=== PATIENT | male | born 1985 | race Caucasian/White ===

== ENCOUNTER 2024-09-15 10:22 | Emergency (ER) | payer OTHER, SELFPAY ==
--- NOTE | ~2024-09-15 | XR_ITS ---
Clinical Indication: Chest pain PA and lateral views of the chest: Comparison: None Findings: The lungs are clear, without evidence of focal consolidation or pleural effusion. Cardiome diastinal silhouette is within normal limits. Bones and soft tissues are unremarkable. Impression: Normal chest. Reviewed, dictated and finalized at location . INE TICKET AGENT Impression: Normal chest.
--- NOTE | ~2024-09-15 | CT_ITS ---
EXAMINATION: CT abdomen pelvis w con DATE: 09/15/2024 12:12 INDICATION: Abdominal pain TECHNIQUE: Computed tomography (CT) of the abdomen and pelvis was performed with 100 mL Omnipaque-350 intravenous contrast. Automated exposure control and iterative reconstruction technique were employe d. The dose-length product was 841.63 mGy-cm. COMPARISON: None FINDINGS: Lung bases are clear. Heart size is normal. No pericardial or pleural effusion. Multiple splenic calc ific lesions consistent with old granulomatous disease. Small amount of focal hepatic steatosis along the ligamentum teres. Gallbladder, pancreas, bilateral adrenal glands and right kidney are normal. 1 .4 cm left renal cyst. Bowels including the appendix are normal. Bladder is normal. No free intraperi toneal gas or fluid. No pathologically enlarged abdominal or pelvic lymphadenopathy. Mild lumbar and mild to moderate lower thoracic spondylosis. IMPRESSION: 1. No acute intra-abdominal/pelvic process. Reviewed, dictated and finalized at location B. GE CLIPPER
--- NOTE | 2024-09-15 10:27 | ECG_ITS ---
Test Date: 2024-09-15 10:31:37 Measurements Intervals [place] Rate: 79 P: 11 UT: 142 QRS: -30 QRSD: 94 T: 22 QT: 357 QTc: 410 Interpretive Statements SINUS RHYTHM WITH SINUS ARRHYTHMIA BORDERLINE LEFT AXIS DEVIATION [QRS AXIS < -20] No previous ECG available for comparison Electronically Signed On 09-15-2024 13:41:37 CYTOGENETIC TECHNOLOGIST by Farhana Gillis M.D.
[2024-09-15 10:38] VITALS: BP 145/93; PULSE 79; RESP 16; TEMP 36.4; O2SAT 98
[2024-09-15 11:09] LABS: Basophils Percent Auto 0.5 % (0.2-1.2); Eosinophils Absolute Auto 0.1 K/mm3 (0-0.3); Eosinophils Percent Auto 0.7 % (0-4.4); Hematocrit 40.7 % (42.0-52.0); Hemoglobin 14.4 g/dL (14.0-18.0); Immature Granulocyte Absolute 0.03 K/mm3 (0.00-0.031); Immature Granulocyte Percent A 0.4 % (0-0.5); Lymphocytes Absolute Auto 1.32 K/mm3 (0.9-3.2); Lymphocytes Percent Auto 16.5 % (18.3-44.2); Mean Corpuscular HGB Conc 35.4 g/dl (32-36); Mean Corpuscular Hemoglobin 29.1 pg (26-34); Mean Corpuscular Volume 82.2 fl (80-100); Mean Platelet Volume 8.9 fl (7.4-10.4); Monocytes Absolute Auto 0.6 K/mm3 (0.1-0.6); Neutrophils Percent Auto 74.9 % (45.5-73.1); Platelet Count Result 242 k/mm3 (150-375); Red Blood Count 4.95 M/mm3 (4.6-6.20); Red Cell Distribution Width 11.9 % (11.5-14.5)
[2024-09-15 11:20] LABS: Alanine Aminotransferase 30 U/L (6-50); Albumin Level 4.8 g/dL (3.5-5.1); Alkaline Phosphatase 80 U/L (38-126); Anion Gap 11 mmol/L (4-12); Aspartate Amino Transferase 28 U/L (17-59); Bilirubin,Total 1.9 mg/dL (0.2-1.3); Blood Urea Nitrogen 14 mg/dL (9-20); Calcium 9.6 mg/dL (8.4-10.2); Carbon Dioxide 26 mmol/L (22-30); Chloride 102 mmol/L (98-107); Estimated CRCL calculation 97 ml/min; Estimated Glomerular Filt Rate > 60; Glucose 108 mg/dL (65-110); Lipase 39 U/L (23-300); Potassium 3.9 mmol/L (3.4-5.0); Sodium 139 mmol/L (137-145)
--- OUTSIDE RECORDS SUMMARY | 2024-09-15 11:21 | XMS_ITS | Clinical Summary ---
Author Organization [facility] Virtual Care Address [address] [place] [phone] Phone Care Team Providers Care Social Service Worker Name Role Phone Unknown, Notinfile Primary Care Provider Unavail able Allergies Active Allergy Reactions Criticality Noted Date Comments Penicillin G Hives Medium 08/07/2024 Medications benzonatate (TESSALON) 200 mg capsuleIndicati ons:Pneumonia of right lower lobe due to infectious organism Take 1 capsule (200 mg total) by mouth 3 (three) times a day as needed for cough keep tessalon out of reach of children, especially children under the age of 10, due to possible serious risk such as if ingested by children under the age of 10. 30 capsule Active Active Problems No known active problems Encounters Date Type Department Care Team Description 08/07/2024 7:39 PM DYE RANGE OPERATOR - 08/07/2024 11:59 PM DYE RANGE OPERATOR Hospital Encounter [address] [id number] Pneumonia of right lower lobe due to infectious organism Discharge Disposition: Discharge to home or self care 08/07/2024 11:35 AM DYE RANGE OPERATOR Ancillary Procedure [facility] Imaging at [address] [phone] Acute cough 08/07/2024 11:15 AM DYE RANGE OPERATOR Office Visit [facility] Convenient Care at [address] [phone] Linda Sanders NP Pneumonia of right lower lobe due to infectious organism (Primary Dx); Elevated blood pressure reading from Last 3 Months Social History Tobacco Use Types Packs/Day Years Used Date Smoking Tobacco: Never Assessed Sex and Gender Information Value Date Recorded Sex Assigned at Not on file Legal Sex Male 10:02 PM DYE RANGE OPERATOR Gender Identity Not on file Sexual Orientation Not on file Obstetrics History Last Filed Vital Signs Vital Sign Reading Time Taken Comments Blood Pressure 146/98 08/07/2024 11:30 AM DYE RANGE OPERATOR Pulse 87 08/07/2024 11:30 AM DYE RANGE OPERATOR Temperature 36.8 ??C (98.2 ??F) 08/07/2024 11:[address] Respiratory Rate 20 08/07/2024 11:08 AM DYE RANGE OPERATOR Oxygen Saturation 99% 08/07/2024 11:30 AM DYE RANGE OPERATOR Inhaled Oxygen Concentration - - Weight 105.2 kg (232 lb) 08/07/2024 11:08 AM DYE RANGE OPERATOR Height - - Body Mass Index - - Plan of Treatment Health Maintenance Due Date Last Done Comments Depression Screening 1983 Hepatitis C Screening 1983 Varicella Vaccines (1 of 2 - 13+ 2-dose series) 1996 Hepatitis B Screening 2001 Regular Well Visit/Exam 18-64 2001 Covid-19 Vaccine ( season) 2024 08/18/2021, 11/18/2020, 10/22/2020 DTaP/Tdap/Td Vaccine (2 - Td or Tdap) 07/29/2025 07/29/2015 Influenza Vaccine Completed 06/12/2024, , 05/25/2022, Additional history exists HPV Vaccines Aged Out No longer eligi ble based on patient's age to complete this topic Pneumococcal vaccine <65 Aged Out No longer eligible based on patient's age to complete this topic Procedures Procedure Name Priority Date/Time Associated Diagnosis Comments INFLUENZA A/B, RSV, AND COVID-19 PCR Routine 08/07/2024 3:13 PM DYE RANGE OPERATOR Pneumonia of right lower lobe due to infectious organism XR CHEST PA LATERAL 2 VIEWS Schedule JEFFERSON, Read JEFFERSON (Appt Today, Awaiting Results) 08/07/2024 11:38 AM DYE RANGE OPERATOR Acute cough from Last 3 Months Results * Influenza A/B, RSV, and COVID-19 PCR Nasopharyngeal (08/07/2024 3:13 PM DYE RANGE OPERATOR) COVID-19 RNA Negative Negative Comment:Collection date/time has been modified to: 15:13:00. Previous collection date/time: 16:00:00. Influenza A RNA Negative Negative [facility] Comment:Collection date/time has been modified to: 15:13:00. Previous collection date/time: 16:00:00. Influenza B RNA Negative Negative [facility] Comment:Collection date/time has been modified to: 15:13:00. Previous collection date/time: 16:00:00. RSV RNA Negative Negative [facility] Comment: Collection date/time has been modified to: 15:13:00. ??Previous collection date/time: 16:00:00. Interpretive data: Testing performed by [facility]. This test is performed using the [employer] Xpress CoV-2/Flu/RSV plus assay. This is a multiplex, real-time reverse transcriptase PCR assay intended for the qualitative detection of nucleic acid from SARS-CoV-2, influenza A, influenza B, and respiratory syncytial virus. This assay has been cleared by the [place] Food and Drug administration. The performance characteristics have been verified by the [facility]. ??Results must be considered in the clinical context, and a negative result does not rule out infection. Interpretive Data last revised 2023 Nasopharyngeal 08/07/2024 3: 13 PM DYE RANGE OPERATOR 08/07/2024 8:21 PM DYE RANGE OPERATOR Narrative LENNY - 08/08/2024 3:36 PM DYE RANGE OPERATOR Is the Patient experiencing symptoms consistent with COVID?->Yes us Linda Sanders NP LAB MICROBIOLOGY - GENERAL ERAN HERNANDEZ Edited Result - Final LENNY [id number] [address] Department [place] [address] CH * XR Chest PA Lateral 2 Views (08/07/2024 11:38 AM DYE RANGE OPERATOR) Anatomical Region Laterality Modality Body, Chest N/A Digital Radiogra phy 08/07/2024 12:2 2 PM DYE RANGE OPERATOR Narrative 08/07/2024 12:24 PM DYE RANGE OPERATOR EXAM DESCRIPTION: XR CHEST PA LATERAL 2 VIEWS REASON FOR STUDY: cough ?? Pt complains of cough for about a week. No surgery to heart, lungs, or chest. Non-smoker. ? TECHNIQUE: 2 ??radiographic view(s) of the chest. COMPARISON: No prior studies are available for comparison at time of this dictation. FINDINGS: LUNGS: ??Focal atelectasis and airspace opacities in the right lower lobe is concerning for pneumonia. ??No pleural effusion or pneumothorax. ?? HEART/MEDIASTINUM: ??Cardiac silhouette normal in size. Mediastinal and hilar contours appear normal. LINES/TUBES: ??None. BONES: ??No acute osseous abnormality. IMPRESSION: Focal atelectasis and airspace opacities in the right lower lobe are concerning for pneumonia. ??Consider follow-up radiograph in 6 weeks to ensure resolution. THIS IS AN ELECTRONICALLY VERIFIED FINAL REPORT 08/07/2024 12:24 PM - Electronically signed by ??Josh Root M.D. MM D: ??08/07/2024 12:24 PM T: Report ID: [id number] Reading Location: ??[id number] Procedure Note Josh Root MD - 08/07/2024 EXAM DESCRIPTION: XR CHEST PA LATERAL 2 VIEWS REASON FOR STUDY: cough Pt complains of cough for about a week. No surgery to heart, lungs, orchest. Non-smoker. TECHNIQUE: 2 radiographic view(s) of the chest. COMPARISON: No prior studies are available for comparison at time of this dictation. FINDINGS: LUNGS: Focal atelectasis and airspace opacities in the rightlower lobe is concerning for pneumonia. No pleural effusion or pneumothorax. HEART/MEDIASTINUM: Cardiac silhouette normal in size. Mediastinal andhilar contours appear normal. LINES/TUBES: None. BONES: No acute osseous abnormality. IMPRESSION: Focal atelectasis and airspace opacities in the right lowerlobe are concerning for pneumonia. Consider follow-up radiograph in 6 weeks to ensure resolution. THIS IS AN ELECTRONICALLY VERIFIED FINAL REPORT 08/07/2024 12:24 PM - Electronically signed by Josh Root M.D. MM T: Report ID: [id number] Reading Location: [id number] Linda Sanders DINING HOST IMG XR PROCEDURES Final Result from Last 3 Months Insurance [employer] Care Teams Social Service Worker Relationship Specialty Start Date End Date Unknown, Notinfile PCP - General 08/07/24
--- OUTSIDE RECORDS SUMMARY | 2024-09-15 11:21 | XMS_ITS | Clinical Summary ---
Author Organization [facility] Address [address] [place] [phone] Care Team Providers Care Daycare Teacher Name Role Phone Unavailable Primary Care Provider Unavailabl e Social History Tobacco Use Types Packs/Day Years Used Date Smoking Tobacco: Never Assessed Sex and Gender Information Value Date Recorded Sex Assigned at Not on file Legal Sex Male 9:58 AM HOSE MENDER Gender Identity Not on file Sexual Orientation Not on file Plan of Treatment Health Maintenance Due Date Last Done Comments Hepatitis C Virus (HCV) Screening 1983 Hepatitis B Immunization (1 of 3 - 19+ 3-dose series) 2002 Influenza Immunization (#1) 04/20/202403/2020, 05/15/2019, 05/23/2018, Additional history exists SARS-COV-2 Immunization ( season) 2024 Respiratory Syncytial Virus (RSV) Immunization (Adult) (1 - 1-dose 75+ series) 2058 DTaP/Tdap/Td Immunization Discontinued 07/29/2015 TdaP Immunization Completed 07/29/2015 Meningococcal Immunization (ACWY) Aged Out No longer eligible based on patient's age to complete this topic Pneumococcal Immunization Combined Aged Out No longer eligible based on patient's age to complete this topic Rotavirus Immunization Aged Out No lo nger eligible based on patient's age to complete this topic Insurance [employer] on file
--- OUTSIDE RECORDS SUMMARY | 2024-09-15 11:21 | XMS_ITS | Referral Summary ---
Author Organization [facility] Virtual Care Address [address] [place] [phone] Phone Care Team Providers Care Die Drawing Checker Name Role Phone Unknown, Notinfile Primary Care Provider Unavail able Encounters Date Type Department Care Team Description 08/07/2024 7:39 PM DECORATING INSTRUCTOR - 08/07/2024 11:59 PM DECORATING INSTRUCTOR Hospital Encounter [address] [phone] Pneumonia of right lower lobe due to infectious organism Discharge Disposition: Discharge to home or self care 08/07/2024 11:35 AM DECORATING INSTRUCTOR Ancillary Procedure [facility] Imaging at [address] [phone] Acute cough 08/07/2024 11:15 AM DECORATING INSTRUCTOR Office Visit [facility] Convenient Care at [address] [phone] Linda Sanders NP Pneumonia of right lower lobe due to infectious organism (Primary Dx); Elevated blood pressure reading from Last 3 Months Allergies Active Allergy Reactions Criticality Noted Date [...] Active Active Problems No known active problems Social History Tobacco Use Types Packs/Day Years Used Date Smoking Tobacco: Never Assessed Sex and Gender Information Value Date Recorded Sex Assigned at Not on file Legal Sex Male 10:02 PM DECORATING INSTRUCTOR Gender Identity Not on file Sexual Orientation Not on file Last Filed Vital Signs Vital Sign Reading Time Taken Comments Blood Pressure 146/98 08/07/2024 11:30 AM DECORATING INSTRUCTOR Pulse 87 08/07/2024 11:30 AM DECORATING INSTRUCTOR Temperature 36.8 ??C (98.2 ??F) 08/07/2024 11:[address] Respiratory Rate 20 08/07/2024 11:08 AM DECORATING INSTRUCTOR Oxygen Saturation 99% 08/07/2024 11:30 AM DECORATING INSTRUCTOR Inhaled Oxygen Concentration - - Weight 105.2 kg (232 lb) 08/07/2024 11:08 AM DECORATING INSTRUCTOR Height - - Body Mass Index - - Plan of Treatment Not on file Procedures Procedure Name Priority Date/Time Associated Diagnosis Comments INFLUENZA A/B, RSV, AND COVID-19 PCR Routine 08/07/2024 3:13 PM DECORATING INSTRUCTOR Pneumonia of right lower lobe due to infectious organism XR CHEST PA LATERAL 2 VIEWS Schedule JEFFERSON, Read JEFFERSON (Appt Today, Awaiting Results) 08/07/2024 11:38 AM DECORATING INSTRUCTOR Acute cough from Last 3 Months Results * Influenza A/B, RSV, and COVID-19 PCR Nasopharyngeal (08/07/2024 3:13 PM DECORATING INSTRUCTOR) COVID-19 RNA Negative Negative Comment:Collection date/time has been modified to: 15:13:00. Previous collection date/time: 16:00:00. Influenza A RNA Negative Negative LENNY Comment:Collection date/time has been modified to: 15:13:00. Previous collection date/time: 16:00:00. Influenza B RNA Negative Negative LENNY Comment:Collection date/time has been modified to: 15:13:00. Previous collection date/time: 16:00:00. RSV RNA Negative Negative LENNY Comment: Collection date/time has been modified to: 15:13:00. ??Previous collection date/time: 16:00:00. Interpretive data: Testing performed by [facility]. This test is performed using the [employer] Xpert Xpress CoV-2/Flu/RSV plus assay. This is a multiplex, real-time reverse transcriptase PCR assay intended for the qualitative detection of nucleic acid from SARS-CoV-2, influenza A, influenza B, and respiratory syncytial virus. This assay has been cleared by the [place] Food and Drug administration. The performance characteristics have been verified by the [facility]. ??Results must be considered in the clinical context, and a negative result does not rule out infection. Interpretive Data last revised 2023 Nasopharyngeal 08/07/2024 3: 13 PM DECORATING INSTRUCTOR 08/07/2024 8:21 PM DECORATING INSTRUCTOR Narrative LENNY - 08/08/2024 3:36 PM DECORATING INSTRUCTOR Is the Patient experiencing symptoms consistent with COVID?->Yes Linda Sanders NP LAB MICROBIOLOGY - GENERAL ERAN HERNANDEZ Edited Result - Final LENNY [id number] [place] [address] CH * XR Chest PA Lateral 2 Views (08/07/2024 11:38 AM DECORATING INSTRUCTOR) Anatomical Region Laterality Modality Body, Chest N/A Digital Radiogra phy 08/07/2024 12:2 2 PM DECORATING INSTRUCTOR Narrative 08/07/2024 12:24 PM DECORATING INSTRUCTOR EXAM DESCRIPTION: XR CHEST PA LATERAL 2 [...] PM - Electronically signed by ??Josh Root M.D., MM D: ??08/07/2024 12:24 PM T: Report ID: [id number] Reading Location: ??[id number] Procedure Note Josh Root MD - 08/07/2024 [...] PM - Electronically signed by Josh Root M.D., MM T: Report ID: [id number] Reading Location: [id number] Linda Sanders NP IMG XR PROCEDURES Final Result from Last 3 Months Insurance [employer] Care Teams Die Drawing Checker Relationship Specialty Start Date End Date Unknown, Notinfile PCP - General 08/07/24
[2024-09-15 11:31] LABS: Troponin I < 0.012 ng/mL (0.000-0.034)
--- NOTE | 2024-09-15 11:50 | ED_ITS ---
HPI - Chest Pain General Chief Complaint: Chest Pain <Althea Kidd APRN - Last Filed: 09/15/24 11:52> Stated Complaint: chest pain on and off for a few days <Althea Kidd APRN - Last Filed: 09/15/24 11:52> Time Seen by Provider: 09/15/24 11:40 <Althea Kidd APRN - Last Filed: 09/15/24 11:52> Focused HPI: Patient is a 39-year-old male who presents to the ER with complaints of chest pain intermittently for the past 3 days. Reports the episodes last for about 30 seconds. Patient reports it does not worsen with exertion and only happens when he is awake. He denies any medical history related to this ER visit. Patient denies shortness of breath, recent fevers, back pain, urinary symptoms. GENERAL: Well-appearing, well-nourished, and in no acute distress. HEAD: Normocephalic, atraumatic. CHEST: Clear to auscultation. ?No respiratory distress. HEART: Regular rate and rhythm.? NEURO: ?Alert and oriented x3. Patient screened in triage and initial orders placed.? ?Additional care and disposition to be based upon?diagnostic testing and treatment. <Althea Kidd APRN - Last Filed: 09/15/24 11:52> History of Present Illness HPI narrative: Agree with HPI <Hal Forrester MD - Last Filed: 09/15/24 18:57> Related Data Allergies/Adverse Reactions: Allergies Allergy/AdvReac Type Severity Reaction Status Date / Time amoxicillin Allergy Unknown Unknown Verified 09/15/24 10:24 sulfamethizole Allergy Unknown Unknown Verified 09/15/24 10:24 sulfamethoxazole Allergy Unknown RASH Verified 09/15/24 10:24 trimethoprim Allergy Unknown Unknown Verified 09/15/24 10:24 <Althea Kidd APRN - Last Filed: 09/15/24 11:52> Review of Systems 2 Review of Systems: All systems reviewed & are unremarkable except as noted in HPI and below <Hal Forrester MD - Last Filed: 09/15/24 18:57> Constitutional: Constitutional: Reports no additional constitutional complaints <Hal Forrester MD - Last Filed: 09/15/24 18:57> Cardiovascular: Cardiovascular: Reports no additional cardiovascular complaints <Hal Forrester MD - Last Filed: 09/15/24 18:57> Respiratory: Respiratory: Reports no additional respiratory complaints < Hal Forrester MD - Last Filed: 09/15/24 18:57> Integumentary/Breasts: Skin/Breast: Reports system reviewed and no additional complaints, except as docu <Hal Forrester MD - Last Filed: 09/15/24 18:57> [facility] Past Medical History Medical History: Medical History BMI 29.0-29.9,adult BMI 31.0-31.9,adult <Althea Kidd APRN - Last Filed: 09/15/24 11:52> Social History Social History: Social History Smoking status: Never smoker Second hand tobacco smoke exposure: No Alcohol intake: never Substance use: never Substance use type: does not use Lack of Transportation: No Lack of Food: Never True Current Housing: I Have Housing Concerned About Future Housing: No Difficulty Paying Gas/Electric Bills: No Difficulty Paying for Meds: No Currently Unemployed: No Education: Bachelor's Degree Difficulty w/ Childcare or Family Care: No Living arrangements: with family Occupation/Education: occupation Gender identity (if verbalized by the patient): Male <Althea Kidd, HOSPITAL CLEANER - Last Filed: 09/15/24 11:52> Exam 2 Narrative: GENERAL: Well-appearing, well-nourished, and in no acute distress. HEAD: Normocephalic, atraumatic. ENT: Mucous membranes moist. CHEST: Clear to auscultation. No respiratory distress. HEART: Regular rate and rhythm. Normal peripheral pulses. ABDOMEN: Soft, nontender, nondistended. EXTREMITIES: Normal range of motion. No edema. SKIN: Warm, dry, no rash. NEURO: Alert and oriented x3. PSYCH: Normal mood and affect. <Hal Forrester MD - Last Filed: 09/15/24 18:57> Course Course Emergency Course: Unremarkable exam. EKG and labs reviewed. RSV positive. Likely has some pleurisy causing his discomfort. <Hal Forrester MD - Last Filed: 09/15/24 18:57> Vital Signs Vital signs: Vital Signs Temperature 97.6 F 09/15/24 10:38 Pulse Rate 79 09/15/24 10:38 Respiratory Rate 16 09/15/24 10:38 Blood Pressure 145/93 H 09/15/24 10:38 Pulse Oximetry 98 09/15/24 10:38 Oxygen Delivery Room Air 09/15/24 10:38 Temperature 97.6 F 09/15/24 10:38 Pulse Rate 83 09/15/24 16:29 Respiratory Rate 20 09/15/24 16:29 Blood Pressure 136/86 09/15/24 16:29 Pulse Oximetry 97 09/15/24 16:29 Oxygen Delivery Room Air 09/15/24 14:02 <Althea Kidd, HOSPITAL CLEANER - Last Filed: 09/15/24 11:52> Vital Signs Temperature 97.6 F 09/15/24 10:38 Pulse Rate 79 09/15/24 10:38 Respiratory Rate 16 09/15/24 10:38 Blood Pressure 145/93 H 09/15/24 10:38 Pulse Oximetry 98 09/15/24 10:38 Oxygen Delivery Room Air 09/15/24 10:38 Temperature 97.6 F 09/15/24 10:38 Pulse Rate 83 09/15/24 16:29 Respiratory Rate 20 09/15/24 16:29 Blood Pressure 136/86 09/15/24 16:29 Pulse Oximetry 97 09/15/24 16:29 Oxygen Delivery Room Air 09/15/24 14:02 <Hal Forrester MD - Last Filed: 09/15/24 18:57> MDM - Chest Pain Lab Data Result diagrams: 09/15/24 11:02 09/15/24 11:02 <Althea Kidd, ZORAN - Last Filed: 09/15/24 11:52> Labs: Lab Results 09/15/24 09/15/24 Range/Units 11:02 12:23 WBC 8.0 (4.5-10.0) K/mm3 RBC 4.95 (4.6-6.20) M/mm3 Hgb 14.4 (14.0-18.0) g/dL Hct 40.7 L (42.0-52.0) % MCV 82.2 (80-100) fl MCH 29.1 (26-34) pg MCHC 35.4 (32-36) g/dl RDW 11.9 (11.5-14.5) % Plt Count 242 (150-375) k/mm3 MPV 8.9 (7.4-10.4) fl Immature Gran % (Auto) 0.4 (0-0.5) % Neut % (Auto) 74.9 H (45.5-73.1) % Lymph % (Auto) 16.5 L (18.3-44.2) % Simpson % (Auto) 7.0 (2.6-8.5) % Eos % (Auto) 0.7 (0-4.4) % Baso % (Auto) 0.5 (0.2-1.2) % Lymph # (Auto) 1.32 (0.9-3.2) K/mm3 Simpson # (Auto) 0.6 (0.1-0.6) K/mm3 Eos # (Auto) 0.1 (0-0.3) K/mm3 Baso # (Auto) 0.0 (0.0-0.1) K/mm3 Abs Immat Gran (auto) 0.03 (0.00-0.031) K/mm3 Absolute Neuts (auto) 6.0 (1.3-6.7) K/mm3 Absolute Nucleated RBC 0.000 (0.0-0.012) K/mm3 Nucleated RBC % 0.0 (0.0-0.2) % PT 14.0 (11.1-14.7) Seconds INR 1.0 APTT 26.3 (22.3-36.8) Seconds Sodium 139 (137-145) mmol/L Potassium 3.9 (3.4-5.0) mmol/L Chloride 102 (98-107) mmol/L Carbon Dioxide 26 (22-30) mmol/L Anion Gap 11 (4-12) mmol/L BUN 14 (9-20) mg/dL Creatinine 1.07 (0.7-1.3) mg/dL Estim Creat Clear Calc 97 ml/min Estimated GFR > 60 (59 - ) Glucose 108 (65-110) mg/dL Calcium 9.6 (8.4-10.2) mg/dL Total Bilirubin 1.9 H (0.2-1.3) mg/dL AST 28 (17-59) U/L ALT 30 (6-50) U/L Alkaline Phosphatase 80 (38-126) U/L Troponin I < 0.012 (0.000-0.034) ng/mL Total Protein 8.0 (6.3-8.2) g/dL Albumin 4.8 (3.5-5.1) g/dL Lipase 39 (23-300) U/L Influenza A (RT-PCR) Negative (Negative) Influenza B (RT-PCR) Negative (Negative) RSV (RT-PCR) Positive A (Negative) SARS-CoV-2 RNA (RT-PCR) Negative (Negative) <Althea Kidd, HOSPITAL CLEANER - Last Filed: 09/15/24 11:52> Lab Results 09/15/24 09/15/24 Range/Units 11:02 12:23 WBC 8.0 (4.5-10.0) K/mm3 RBC 4.95 (4.6-6.20) M/mm3 Hgb 14.4 (14.0-18.0) g/dL Hct 40.7 L (42.0-52.0) % MCV 82.2 (80-100) fl MCH 29.1 (26-34) pg MCHC 35.4 (32-36) g/dl RDW 11.9 (11.5-14.5) % Plt Count 242 (150-375) k/mm3 MPV 8.9 (7.4-10.4) fl Immature Gran % (Auto) 0.4 (0-0.5) % Neut % (Auto) 74.9 H (45.5-73.1) % Lymph % (Auto) 16.5 L (18.3-44.2) % Simpson % (Auto) 7.0 (2.6-8.5) % Eos % (Auto) 0.7 (0-4.4) % Baso % (Auto) 0.5 (0.2-1.2) % Lymph # (Auto) 1.32 (0.9-3.2) K/mm3 Simpson # (Auto) 0.6 (0.1-0.6) K/mm3 Eos # (Auto) 0.1 (0-0.3) K/mm3 Baso # (Auto) 0.0 (0.0-0.1) K/mm3 Abs Immat Gran (auto) 0.03 (0.00-0.031) K/mm3 Absolute Neuts (auto) 6.0 (1.3-6.7) K/mm3 Absolute Nucleated RBC 0.000 (0.0-0.012) K/mm3 Nucleated RBC % 0.0 (0.0-0.2) % PT 14.0 (11.1-14.7) Seconds INR 1.0 APTT 26.3 (22.3-36.8) Seconds Sodium 139 (137-145) mmol/L Potassium 3.9 (3.4-5.0) mmol/L Chloride 102 (98-107) mmol/L Carbon Dioxide 26 (22-30) mmol/L Anion Gap 11 (4-12) mmol/L BUN 14 (9-20) mg/dL Creatinine 1.07 (0.7-1.3) mg/dL Estim Creat Clear Calc 97 ml/min Estimated GFR > 60 (59 - ) Glucose 108 (65-110) mg/dL Calcium 9.6 (8.4-10.2) mg/dL Total Bilirubin 1.9 H (0.2-1.3) mg/dL AST 28 (17-59) U/L ALT 30 (6-50) U/L Alkaline Phosphatase 80 (38-126) U/L Troponin I < 0.012 (0.000-0.034) ng/mL Total Protein 8.0 (6.3-8.2) g/dL Albumin 4.8 (3.5-5.1) g/dL Lipase 39 (23-300) U/L Influenza A (RT-PCR) Negative (Negative) Influenza B (RT-PCR) Negative (Negative) RSV (RT-PCR) Positive A (Negative) SARS-CoV-2 RNA (RT-PCR) Negative (Negative) <Hal Forrester MD - Last Filed: 09/15/24 18:57> Imaging Data Radiologist's impression: ITS Impressions Chest X-Ray 09/15/24 12:09 Impression: Normal chest. Abdomen/Pelvis CT 09/15/24 12:13 IMPRESSION: 1. No acute intra-abdominal/pelvic process. <Hal Forrester MD - Last Filed: 09/15/24 18:57> Discharge Plan Discharge Clinical Impression: Pleurisy, RSV infection <Althea Kidd APRN - Last Filed: 09/15/24 11:52> Patient Disposition: Home, Self-Care <Althea Kidd APRN - Last Filed: 09/15/24 11:52> Condition: Stable <Althea Kidd APRN - Last Filed: 09/15/24 11:52> Instructions: Pleurisy (ED) <Althea Kidd APRN - Last Filed: 09/15/24 11:52> Additional Instructions: Please return to the emergency department if you develop severe and persistent chest pain, difficulty breathing, dizziness, leg swelling or if you are coughing up blood as these can be signs of a medical emergency. Please call your doctor for a follow up appointment to determine the need for further testing. <Althea Kidd APRN - Last Filed: 09/15/24 11:52> Patient Language: Luxembourgish <Althea Kidd APRN - Last Filed: 09/15/24 11:52> Prescriptions: New naproxen 375 mg tablet 375 mg PO BID Qty: 14 0RF <Althea Kidd APRN - Last Filed: 09/15/24 11:52> Follow-up/Referrals: Balta Phoenix MD [Primary Care Provider] - 1 Week <Althea Kidd APRN - Last Filed: 09/15/24 11:52>
[2024-09-15 12:04] LABS: Partial Thromboplastin Time 26.3 Seconds (22.3-36.8)
[2024-09-15] MEDS: ASPIRIN 81 MG CHEWABLE TABLET 324 MG PO (12:24)
[2024-09-15] MEDS: BELLADONNA ALK/PHENOB ELIX 10 ML, MAG HYDROX/ALUMINUM HYD/SIMETH 30 ML, LIDOCAINE 2% VI... PO (12:24)
[2024-09-15 13:08] LABS: Influenza A QL RT-PCR Negative (Negative); Influenza B QL RT-PCR Negative (Negative); RSV RNA, RT-PCR Positive (Negative); SARS-CoV-2 RNA PCR Negative (Negative)
[2024-09-15 14:02] VITALS: PULSE 69; O2SAT 97
[2024-09-15 15:15] VITALS: BP 128/89; PULSE 79; RESP 18; O2SAT 97
--- OUTSIDE RECORDS SUMMARY | 2024-09-15 15:53 | XMS_ITS | Referral Summary ---
Author Organization [facility] Virtual Care Address [address] [place] [phone] Phone Care Team Providers Care Gerontological Nurse Practitioner Name Role Phone Unknown, Notinfile Primary Care Provider Unavail able Encounters Date Type Department Care Team Description 08/07/2024 7:39 PM PAINTER MAINTENANCE - 08/07/2024 11:59 PM PAINTER MAINTENANCE Hospital Encounter [address] [phone] Pneumonia of right lower lobe due to infectious organism Discharge Disposition: Discharge to home or self care 08/07/2024 11:35 AM PAINTER MAINTENANCE Ancillary Procedure [facility] Imaging at [address] [phone] Acute cough 08/07/2024 11:15 AM PAINTER MAINTENANCE Office Visit [facility] Con[facility]ient Care at [address] [phone] Linda Sanders NP Pneumonia of right lower [...] on file Legal Sex Male 10:02 PM PAINTER MAINTENANCE Gender Identity Not on file Sexual Orientation Not on file Last Filed Vital Signs Vital Sign Reading Time Taken Comments Blood Pressure 146/98 08/07/2024 11:30 AM PAINTER MAINTENANCE Pulse 87 08/07/2024 11:30 AM PAINTER MAINTENANCE Temperature 36.8 ??C (98.2 ??F) 08/07/2024 11:[address] Respiratory Rate 20 08/07/2024 11:08 AM PAINTER MAINTENANCE Oxygen Saturation 99% 08/07/2024 11:30 AM PAINTER MAINTENANCE Inhaled Oxygen Concentration - - Weight 105.2 kg (232 lb) 08/07/2024 11:08 AM PAINTER MAINTENANCE Height - - Body Mass Index - - Plan of Treatment Not on file Procedures Procedure Name Priority Date/Time Associated Diagnosis Comments INFLUENZA A/B, RSV, AND COVID-19 PCR Routine 08/07/2024 3:13 PM PAINTER MAINTENANCE Pneumonia of right lower lobe due to infectious organism XR CHEST PA LATERAL 2 VIEWS Schedule JEFFERSON, Read JEFFERSON (Appt Today, Awaiting Results) 08/07/2024 11:38 AM PAINTER MAINTENANCE Acute cough from Last 3 Months Results * Influenza A/B, RSV, and COVID-19 PCR Nasopharyngeal (08/07/2024 3:13 PM PAINTER MAINTENANCE) COVID-19 RNA Negative Negative Comment:Collection date/time has [...] date/time: 16:00:00. Interpretive data: Testing performed by [facility]. This test is performed using the i-marker Xpert Xpress CoV-2/Flu/RSV plus assay. This is a multiplex, real-time reverse transcriptase PCR assay intended for the qualitative detection of nucleic acid from SARS-CoV-2, influenza A, influenza B, and respiratory syncytial virus. This assay has been cleared by the [place] Food and Drug administration. The performance characteristics have been verified by the [facility]. ??Results must be considered in the clinical context, and a negative result does not rule out infection. Interpretive Data last revised 2023 Nasopharyngeal 08/07/2024 3: 13 PM PAINTER MAINTENANCE 08/07/2024 8:21 PM PAINTER MAINTENANCE Narrative LENNY - 08/08/2024 3:36 PM PAINTER MAINTENANCE Is the Patient experiencing symptoms consistent with COVID?->Yes Linda Sanders NP LAB MICROBIOLOGY - GENERAL ERAN HERNANDEZ Edited Result - Final LENNY [id number] [address] Department [place] [address] CH * XR Chest PA Lateral 2 Views (08/07/2024 11:38 AM PAINTER MAINTENANCE) Anatomical Region Laterality Modality Body, Chest N/A Digital Radiogra phy 08/07/2024 12:2 2 PM PAINTER MAINTENANCE Narrative 08/07/2024 12:24 PM PAINTER MAINTENANCE EXAM DESCRIPTION: XR CHEST PA LATERAL 2 [...] D: ??08/07/2024 12:24 PM T: Report ID: [id number] Reading Location: ??[id number] Procedure Note Josh Root MD - 08/07/2024 [...] Josh Root M.D., MM T: Report ID: [id number] Reading Location: [id number] Linda Sanders NP IMG XR PROCEDURES Final Result from Last 3 Months Insurance [employer] Care Teams Gerontological Nurse Practitioner Relationship Specialty Start Date End Date Unknown, Notinfile PCP - General 08/07/24
--- OUTSIDE RECORDS SUMMARY | 2024-09-15 15:53 | XMS_ITS | Clinical Summary ---
Author Organization [facility] Virtual Care Address [address] [place] [phone] Phone Care Team Providers Care Construction Consultant Name Role Phone Unknown, Notinfile Primary Care [...] Department Care Team Description 08/07/2024 7:39 PM DEFENSE ANALYST - 08/07/2024 11:59 PM DEFENSE ANALYST Hospital Encounter [address] [phone] Pneumonia of right lower lobe due to infectious organism Discharge Disposition: Discharge to home or self care 08/07/2024 11:35 AM DEFENSE ANALYST Ancillary Procedure [facility] Imaging at [address] [phone] Acute cough 08/07/2024 11:15 AM DEFENSE ANALYST Office Visit [facility] Convenient Care at [address] [phone] Linda Sanders NP Pneumonia of right lower lobe due to infectious organism (Primary Dx); Elevated blood pressure reading from Last 3 Months Social History Tobacco Use Types Packs/Day Years Used Date Smoking Tobacco: Never Assessed Sex and Gender Information Value Date Recorded Sex Assigned at Not on file Legal Sex Male 10:02 PM DEFENSE ANALYST Gender Identity Not on file Sexual Orientation Not on file Obstetrics History Last Filed Vital Signs Vital Sign Reading Time Taken Comments Blood Pressure 146/98 08/07/2024 11:30 AM DEFENSE ANALYST Pulse 87 08/07/2024 11:30 AM DEFENSE ANALYST Temperature 36.8 ??C (98.2 ??F) 08/07/2024 11:[address] Respiratory Rate 20 08/07/2024 11:08 AM DEFENSE ANALYST Oxygen Saturation 99% 08/07/2024 11:30 AM DEFENSE ANALYST Inhaled Oxygen Concentration - - Weight 105.2 kg (232 lb) 08/07/2024 11:08 AM DEFENSE ANALYST Height - - Body Mass Index - [...] AND COVID-19 PCR Routine 08/07/2024 3:13 PM DEFENSE ANALYST Pneumonia of right lower lobe due to infectious organism XR CHEST PA LATERAL 2 VIEWS Schedule JEFFERSON, Read JEFFERSON (Appt Today, Awaiting Results) 08/07/2024 11:38 AM DEFENSE ANALYST Acute cough from Last 3 Months Results * Influenza A/B, RSV, and COVID-19 PCR Nasopharyngeal (08/07/2024 3:13 PM DEFENSE ANALYST) COVID-19 RNA Negative Negative Comment:Collection date/time has been modified to: 15:13:00. Previous collection date/time: 16:00:00. Influenza A RNA Negative Negative [facility] Comment:Collection date/time has been modified to: 15:13:00. Previous collection date/time: 16:00:00. Influenza B RNA Negative Negative [facility] Comment:Collection date/time has been modified to: 15:13:00. Previous collection date/time: 16:00:00. RSV RNA Negative Negative [facility] Comment: Collection date/time has been modified to: 15:13:00. ??Previous collection date/time: 16:00:00. Interpretive data: Testing performed by [facility]. This test is performed using the [employer] Xpress CoV-2/Flu/RSV plus assay. This is a multiplex, real-time reverse transcriptase PCR assay intended for the qualitative detection of nucleic acid from SARS-CoV-2, influenza A, influenza B, and respiratory syncytial virus. This assay has been cleared by the [place] Food and Drug administration. The performance characteristics have been verified by the [facility]. ??Results must be considered in the clinical context, and a negative result does not rule out infection. Interpretive Data last revised 2023 Nasopharyngeal 08/07/2024 3: 13 PM DEFENSE ANALYST 08/07/2024 8:21 PM DEFENSE ANALYST Narrative LENNY - 08/08/2024 3:36 PM DEFENSE ANALYST Is the Patient experiencing symptoms consistent with COVID?->Yes us Linda Sanders NP LAB MICROBIOLOGY - GENERAL ERAN HERNANDEZ Edited Result - Final LENNY [id number] [address] Department [place] [address] CH * XR Chest PA Lateral 2 Views (08/07/2024 11:38 AM DEFENSE ANALYST) Anatomical Region Laterality Modality Body, Chest N/A Digital Radiogra phy 08/07/2024 12:2 2 PM DEFENSE ANALYST Narrative 08/07/2024 12:24 PM DEFENSE ANALYST EXAM DESCRIPTION: XR CHEST PA LATERAL 2 [...] D: ??08/07/2024 12:24 PM T: Report ID: [id number] Reading Location: ??[id number] Procedure Note Josh Root MD - 08/07/2024 [...] Josh Root M.D. MM T: Report ID: [id number] Reading Location: [id number] Linda Sanders BIOANALYST IMG XR PROCEDURES Final Result from Last 3 Months Insurance [employer] Care Teams Construction Consultant Relationship Specialty Start Date End Date Unknown, Notinfile PCP - General 08/07/24
--- OUTSIDE RECORDS SUMMARY | 2024-09-15 15:53 | XMS_ITS | Clinical Summary ---
Author Organization [facility] Address [address] [place] [phone] Care Team Providers Care Protection Agent Name Role Phone Unavailable Primary Care Provider Unavailabl e Social History Tobacco Use Types Packs/Day Years Used Date Smoking Tobacco: Never Assessed Sex and Gender Information Value Date Recorded Sex Assigned at Not on file Legal Sex Male 9:58 AM PROGRAM DEVELOPER Gender Identity Not on file Sexual Orientation [...]
[2024-09-15 16:29] VITALS: BP 136/86; PULSE 83; RESP 20; O2SAT 97
== END 2024-09-15 16:30 | disposition home or self-care (01) ==
PROVIDERS: Registered Nurse; Emergency Provider Emergency Medicine; PCP Family Medicine
DX: R09.1 Pleurisy (principal); B97.4 Respiratory syncytial virus as the cause of diseases classified elsewhere; Z20.822 Contact with and (suspected) exposure to COVID-19
CPT/HCPCS: 36415; 71046; 74177; 80053; 83690; 84484; 85025; 85610; 85730; 87637; 93005; 99284; A9270; Q9967